=== PATIENT | female | born 1980 | race Caucasian/White ===

== ENCOUNTER 2017-02-05 20:04 | Emergency (ER) | payer SELFPAY ==
[~2017-02-05] VITALS: Ht 170.2 cm; Wt 57.0 kg
[2017-02-05 20:10] VITALS: BP 163/122
== END 2017-02-05 20:48 | disposition left against medical advice (07) ==
LOC: EMS 20:08
DX: I10 Essential (primary) hypertension (principal); F17.210 Nicotine dependence, cigarettes, uncomplicated; F11.90 Opioid use, unspecified, uncomplicated; F19.90 Other psychoactive substance use, unspecified, uncomplicated; Z53.21 Procedure and treatment not carried out due to patient leaving prior to being seen by health care provider

== ENCOUNTER 2018-03-17 11:32 | Inpatient (IN) | payer MEDICAID ==
[~2018-03-17] VITALS: Ht 170.2 cm; Wt 61.0 kg
[2018-03-17 15:18] LABS: BASOPHILS % (AUTO) 0.3 % (0.0-2.0); EOSINOPHILS % (AUTO) 1.7 % (1.0-6.0); HEMATOCRIT 34.5 % (36-46); LYMPHOCYTES # (AUTO) 1.9 K/uL (1.0-4.8); LYMPHOCYTES % (AUTO) 22.5 % (22.0-44.0); MEAN CORPUSCULAR HEMOGLOBIN 30.9 pg (26.0-34.0); MEAN CORPUSCULAR HGB CONC 34.8 G/dL (31.0-37.0); MEAN CORPUSCULAR VOLUME 89 fL (80-100); MONOCYTES # (AUTO) 0.6 K/uL (0.1-1.0); MONOCYTES % (AUTO) 7.4 % (2.0-9.0); NEUTROPHILS # (AUTO) 5.8 K/uL (1.8-7.7); NEUTROPHILS % (AUTO) 68.1 % (40.0-70.0); PLATELET COUNT (AUTO) 357 K/uL (150-450)
[2018-03-17 15:34] LABS: ALANINE AMINOTRANSFERASE 36 U/L (12-78); ALBUMIN 3.5 g/dL (3.4-5.0); ALKALINE PHOSPHATASE 54 U/L (46-116); ANION GAP 9 mmol/L (8-16); ASPARTATE AMINOTRANSFERASE 26 U/L (15-37); BILIRUBIN,TOTAL 0.4 mg/dL (0.1-1.0); CALCIUM, TOTAL 8.5 mg/dL (8.8-10.5); CARBON DIOXIDE 29 mmol/L (22-29); CHLORIDE 101 mmol/L (98-107); CREATININE 0.64 mg/dL (0.60-1.30); GLOMERULAR FILTR. RATE CALC > 60 mL/min (>60); GLUCOSE,RANDOM 88 mg/dL (70-110); SODIUM SERUM 139 mmol/L (136-145); TOTAL PROTEIN, SERUM 6.8 g/dL (6.4-8.2); UREA NITROGEN, BLOOD 14 mg/dL (7-18)
[2018-03-17 15:36] LABS: POTASSIUM 2.9 mmol/L (3.5-5.1)
[2018-03-17] MEDS ORDERED: POTASSIUM CHLORIDE 10% 40 MEQ/30 ML LIQUID UDCUP PO ONE (15:45)
[2018-03-17 16:42] LABS: AMPHET/METH SCREEN,URINE POSITIVE (NEGATIVE); BARBITURATE SCREEN, URINE NEGATIVE (NEGATIVE); BENZODIAZEPINES SCREEN,URINE POSITIVE (NEGATIVE); CANNABINOID SCREEN,URINE POSITIVE (NEGATIVE); COCAINE SCREEN,URINE NEGATIVE (NEGATIVE); METHADONE SCREEN, URINE NEGATIVE (NEGATIVE); OPIATE SCREEN,URINE NEGATIVE (NEGATIVE)
[2018-03-17 16:44] LABS: PHENCYCLIDINE SCREEN,URINE NEGATIVE (NEGATIVE)
[2018-03-17] MEDS ORDERED: ZOLPIDEM TARTRATE 10 MG TABLET PO PRN (17:00)
[2018-03-17] MEDS ORDERED: HALOPERIDOL 5 MG TABLET PO PRN (17:00)
[2018-03-17] MEDS ORDERED: LORazepam 2 MG TABLET PO ONE (17:30)
[2018-03-17] MEDS ORDERED: POTASSIUM CHLORIDE 20 MEQ ER TABLET PO ONE (20:00)
[2018-03-17] MEDS ORDERED: MAGNESIUM HYDROXIDE SUSPENSION 30 ML UDCUP PO PRN (20:00)
[2018-03-17] MEDS ORDERED: MAG HYDROX/AL HYDROX/SIMETH ES 30 ML SUSPENSION UDCUP PO PRN (20:00)
[2018-03-17] MEDS ORDERED: ACETAMINOPHEN 325 MG TABLET PO PRN (20:00)
[2018-03-17] MEDS ORDERED: LOPERAMIDE HCL 2 MG CAPSULE PO PRN (20:00)
[2018-03-17] MEDS ORDERED: CloNIDine HCL 0.1 MG TABLET PO PRN (20:00)
[2018-03-17] MEDS ORDERED: IBUPROFEN 400 MG TABLET PO PRN (20:00)
[2018-03-17] MEDS ORDERED: ALBUTEROL SULFATE HFA 90 MCG/PUFF 8 GM INHALER IH PRN (20:00)
[2018-03-17] MEDS ORDERED: DOCUSATE SODIUM 100 MG CAPSULE PO PRN (20:00)
[2018-03-17] MEDS ORDERED: ONDANSETRON HCL 4 MG TABLET PO PRN (20:00)
[2018-03-17] MEDS ORDERED: PETROLATUM,WHITE 71 GM JELLY TP PRN (20:00)
[2018-03-17] MEDS ORDERED: PNEUMOCOCCAL VACCINE POLYVALENT 0.5 ML VIAL [PPSV23] IM ONE (20:00)
[2018-03-17 20:03] VITALS: BP 157/99
[2018-03-17] MEDS: LISINOPRIL 10 MG TABLET PO SCH (20:37)
[2018-03-18 07:19] VITALS: BP 140/82
[2018-03-18 08:54] LABS: HEMOGLOBIN A1C 5.8 % (4.5-6.2)
[2018-03-18 09:16] LABS: ALANINE AMINOTRANSFERASE 30 U/L (12-78); ALBUMIN 3.3 g/dL (3.4-5.0); ALKALINE PHOSPHATASE 51 U/L (46-116); ANION GAP 4 mmol/L (8-16); ASPARTATE AMINOTRANSFERASE 19 U/L (15-37); BILIRUBIN,TOTAL 0.2 mg/dL (0.1-1.0); CALCIUM, TOTAL 9.1 mg/dL (8.8-10.5); CARBON DIOXIDE 30 mmol/L (22-29); CHLORIDE 103 mmol/L (98-107); CHOL/HDL RATIO 2.3 (3.9-5.7); CHOLESTEROL 139 mg/dL (131-200); CREATININE 0.64 mg/dL (0.60-1.30); GLOMERULAR FILTR. RATE CALC > 60 mL/min (>60); GLUCOSE,RANDOM 96 mg/dL (70-110); HDL CHOLESTEROL 61 mg/dL (40-60); LDL CHOL (CALC.) 60 mg/dL (0-130); POTASSIUM 4.3 mmol/L (3.5-5.1); SODIUM SERUM 137 mmol/L (136-145); THYROID STIMULATING HORMONE 1.19 uIU/mL (0.36-3.74); TOTAL PROTEIN, SERUM 6.4 g/dL (6.4-8.2); TRIGLYCERIDES 89 mg/dL (15-150); UREA NITROGEN, BLOOD 17 mg/dL (7-18)
[2018-03-18] MEDS: LISINOPRIL 10 MG TABLET PO SCH (10:03)
[2018-03-18] MEDS: LORazepam 2 MG TABLET PO PRN ×2 (10:03→20:18)
[2018-03-18 16:00] VITALS: BP 126/74
[2018-03-18] MEDS: RisperiDONE 0.5 MG TABLET PO SCH (20:18)
[2018-03-19 07:21] VITALS: BP 126/72
[2018-03-19] MEDS: LORazepam 2 MG TABLET PO PRN ×2 (09:18→20:29)
[2018-03-19] MEDS: LISINOPRIL 10 MG TABLET PO SCH (09:18)
[2018-03-19 11:02] VITALS: BP 132/71
[2018-03-19 16:05] VITALS: BP 139/83
[2018-03-19] MEDS: RisperiDONE 0.5 MG TABLET PO SCH (20:29)
[2018-03-20 07:16] VITALS: BP 138/78
[2018-03-20] MEDS: LORazepam 2 MG TABLET PO PRN (09:04)
[2018-03-20] MEDS: LISINOPRIL 10 MG TABLET PO SCH (09:04)
[2018-03-20] MEDS ORDERED: RISP.5 PO (10:14)
[2018-03-20] MEDS ORDERED: LISI-661 PO (11:19)
== END 2018-03-20 12:45 | disposition home or self-care (01) | DRG 751 ==
LOC: EMS 11:35 → B3A 17:23
DX: F29 Unspecified psychosis not due to a substance or known physiological condition (principal); Z78.1 Physical restraint status; I10 Essential (primary) hypertension; F11.90 Opioid use, unspecified, uncomplicated; Z71.51 Drug abuse counseling and surveillance of drug abuser; F20.0 Paranoid schizophrenia; F15.10 Other stimulant abuse, uncomplicated; E87.6 Hypokalemia; F12.10 Cannabis abuse, uncomplicated; G89.29 Other chronic pain; F41.9 Anxiety disorder, unspecified; M54.9 Dorsalgia, unspecified; Z28.21 Immunization not carried out because of patient refusal
CPT/HCPCS: 83036; 84443; 99285; G0480

== ENCOUNTER 2020-03-24 09:54 | Emergency (ER) | payer MEDICAID ==
[~2020-03-24] VITALS: Ht 175.3 cm; Wt 81.8 kg
[~2020-03-24 09:54] MED LIST: LISI-661 PO; RISP0.5T20 PO
[2020-03-24 09:57] VITALS: BP 129/77
== END 2020-03-24 11:03 | disposition home or self-care (01) ==
LOC: EMS 09:59
DX: H65.91 Unspecified nonsuppurative otitis media, right ear (principal); F41.9 Anxiety disorder, unspecified; I10 Essential (primary) hypertension; F11.90 Opioid use, unspecified, uncomplicated; F12.90 Cannabis use, unspecified, uncomplicated; F19.90 Other psychoactive substance use, unspecified, uncomplicated; Z79.899 Other long term (current) drug therapy
CPT/HCPCS: 99283; Z7502

== ENCOUNTER 2020-07-15 09:09 | Emergency (ER) | payer MEDICAID ==
[~2020-07-15] VITALS: Ht 165.1 cm; Wt 70.5 kg
[~2020-07-15 09:09] MED LIST changes: -RISP0.5T20 PO; +RISP0.5T39 PO
[2020-07-15] MEDS ORDERED: ERYT3.5O8 OD (09:16)
[2020-07-15] MEDS ORDERED: PROPARACAINE HCL 0.5% 15 ML OPHTHALMIC SOLUTION OD ONE (10:00)
[2020-07-15] MEDS ORDERED: FLUORESCEIN SODIUM 1 MG STRIP ONE (10:10)
[2020-07-15 10:20] VITALS: BP 129/71
== END 2020-07-15 10:30 | disposition home or self-care (01) ==
LOC: EMS 09:17
DX: L03.213 Periorbital cellulitis (principal); H10.9 Unspecified conjunctivitis; F41.9 Anxiety disorder, unspecified; I10 Essential (primary) hypertension; F11.90 Opioid use, unspecified, uncomplicated; F12.90 Cannabis use, unspecified, uncomplicated; F19.90 Other psychoactive substance use, unspecified, uncomplicated

== ENCOUNTER 2020-12-20 14:30 | Emergency (ER) | payer MEDICAID ==
[~2020-12-20] VITALS: Ht 165.1 cm; Wt 63.6 kg
[~2020-12-20 14:30] MED LIST changes: +ERYT3.5O8 OD; -LISI-661 PO; -RISP0.5T39 PO
[2020-12-20 16:37] VITALS: BP 140/88
== END 2020-12-20 16:45 | disposition home or self-care (01) ==
LOC: EMS 14:39
DX: N89.8 Other specified noninflammatory disorders of vagina (principal)
CPT/HCPCS: 99281; Z7502